=== PATIENT | male | born 1965 | race Caucasian/White ===

== ENCOUNTER 2016-11-19 10:58 | Emergency (ER) | payer OTHER ==
[2016-11-19] MEDS ORDERED: KETOROLAC 30 MG/1 ML ONE (13:25)
[2016-11-22 17:07] LABS: BLOOD UREA NITROGEN 24 mg/dL (7-18); IS PT STATUS REG ER OR PRE ER? YES
== END 2016-11-19 16:23 | disposition home or self-care (01) ==
LOC: ED 10:58
DX: M94.0 Chondrocostal junction syndrome [Tietze] (principal); I10 Essential (primary) hypertension; E11.9 Type 2 diabetes mellitus without complications
CPT/HCPCS: 36415; 71020; 80048; 82040; 84484; 85025; 93005; 99285

== ENCOUNTER 2020-06-22 12:51 | Emergency (ER) | payer OTHER ==
[~2020-06-22] VITALS: Ht 165.1 cm; Wt 70.0 kg
[2020-06-22] MEDS ORDERED: LORazepam 1MG TABLET ONE (13:23)
[2020-06-22] MEDS ORDERED: LORazepam 1MG TABLET PO ONE (13:30)
[2020-06-22 13:34] LABS: BASOPHILS % (AUTO) 1 % (0-1); EOSINOPHILS % (AUTO) 0 % (1-7); LYMPHOCYTES % (AUTO) 5 % (22-44); MEAN CORPUSCULAR HEMOGLOBIN 19.2 pg (27.5-34.5); MEAN CORPUSCULAR HGB CONC 31.5 g/dL (33.2-36.2); MEAN PLATELET VOLUME 8.5 fL (7.4-10.4); MONOCYTES % (AUTO) 5 % (2-9); NEUTROPHILS % (AUTO) 90 % (42-75); PLATELET COUNT 423 x10^3/uL (130-400); RED BLOOD COUNT 5.26 x10^6/uL (4.38-5.82); RED CELL DISTRIBUTION WIDTH 19.1 % (9.4-14.8)
--- NOTE | 2020-06-22 13:38 | NUR ---
Pt denies pain. States "my heart is just beating out of my chest and I can hear it in my arms." Pt connected to BP and O2 monitors. Lights off to promote rest. NADN. All needs met at this time.
[2020-06-22 13:44] LABS: CALCIUM 8.8 mg/dL (8.5-10.1); CHLORIDE 108 mmol/L (98-107); CREATININE 0.76 mg/dL (0.7-1.3)
[2020-06-22 13:57] LABS: ANION GAP 5 mmol/L (5-15)
[2020-06-22 14:01] LABS: ANISOCYTOSIS 2+; HYPOCHROMIA 1+; MD MORPH REVIEW ONLY; MICROCYTOSIS 2+
[2020-06-22 14:02] LABS: OVALOCYTES 1+; TEAR DROPS 1+
[2020-06-22 14:03] LABS: ACANTHOCYTES 1+
[2020-06-22 14:04] LABS: <PLATELET ESTIMATE> INCREASED
[2020-06-22 14:05] LABS: LARGE PLATELETS 1+
--- NOTE | 2020-06-22 14:17 | NUR ---
Pt ambulatory to bathroom, steady gait.
[2020-06-22 14:47] VITALS: BP 114/62
--- NOTE | 2020-06-22 14:56 | NUR ---
task RN note: pt given dc instructions, educated regarding return criteria. pt notified he may not drive, family in lobby to drive pt home. pt a&o, resps even and unlabord, ambulatory to dc desk with steady gait. pt reports, "my anxiety is much better."
== END 2020-06-22 15:01 | disposition home or self-care (01) ==
LOC: ED 13:58
DX: F41.1 Generalized anxiety disorder (principal); R07.89 Other chest pain; R00.2 Palpitations; R06.4 Hyperventilation
CPT/HCPCS: 36415; 80048; 84443; 85025; 93005; 99284